=== PATIENT | female | born 1955 | race Caucasian/White ===

== ENCOUNTER → 2020-05-12 | Outpatient (CLI) | payer BC ==
--- NOTE | 2020-05-12 12:59 | XR ---
EXAMINATION TYPE: XR knee complete RT DATE OF EXAM: 05/12/2020 COMPARISON: NONE HISTORY: 64-year-old female right knee pain TECHNIQUE: 3 views FINDINGS: Mild degenerative spurring medial and patellofemoral compartments. Unable to exclude underlying moder ate knee joint effusion. No acute fracture, subluxation, dislocation seen. IMPRESSION: There seems to be an underlying moderate joint effusion. Consider MRI if symptoms persist and concern for internal derangement. No acute osseous abnormality seen.
== END | disposition home or self-care (01) ==
LOC: RADXRMAIN 10:23
PROVIDERS: ATTEND Nurse Practitioner Gerontology
DX: M25.561 Pain in right knee (principal)

== ENCOUNTER 2021-04-20 17:09 | Emergency (ER) | payer BC, MEDICARE ==
[2021-04-20 18:17] VITALS: TEMP 98.4
--- NOTE | 2021-04-20 19:02 | ED ---
URI HPI - General Source: patient Mode of arrival: ambulatory Limitations: no limitations <Stew Sepulveda - Last Filed: 04/20/21 23:18> <Erika Starks - Last Filed: 04/21/21 00:30> - General Chief Complaint: Upper Respiratory Infection Stated Complaint: Covid test, LUIS Time Seen by Provider: 04/20/21 18:50 - History of Present Illness Initial Comments: This is a pleasant 65-year-old female who presents to emergency department stating that she has symptoms or COVID-19 which started 9 days ago. Patient presenting to get a COVID-19 test and received the monoclonal antibody possible. Patient complaining of fever, shortness of breath, dry cough (Stew Sepulveda) - Related Data Allergies Allergy/AdvReac Type Severity Reaction Status Date / Time No Known Allergies Allergy Verified 04/20/21 18:17 Review of Systems ROS Other: All systems not noted in ROS Statement are negative. <DerickStew - Last Filed: 04/20/21 23:18> ROS Other: All systems not noted in ROS Statement are negative. <Erika Starks - Last Filed: 04/21/21 00:30> ROS Statement: Those systems with pertinent positive or pertinent negative responses have been documented in the HPI. Past Medical History Past Medical History: No Reported History History of Any Multi-Drug Resistant Organisms: None Reported Past Surgical History: No Surgical Hx Reported Past Psychological History: No Psychological Hx Reported Smoking Status: Never smoker Past Alcohol Use History: None Reported Past Drug Use History: None Reported <Stew Sepulveda - Last Filed: 04/20/21 23:18> General Exam Limitations: no limitations General appearance: alert, in no apparent distress Head exam: Present: atraumatic, normocephalic, normal inspection Eye exam: Present: normal appearance, PERRL, EOMI. Absent: scleral icterus, conjunctival injection, periorbital swelling ENT exam: Present: normal exam, mucous membranes moist Neck exam: Present: normal inspection. Absent: tenderness, meningismus, lymphadenopathy Respiratory exam: Present: normal lung sounds bilaterally. Absent: respiratory distress, wheezes, rales, rhonchi, stridor Cardiovascular Exam: Present: regular rate, normal rhythm, normal heart sounds. Absent: systolic murmur, diastolic murmur, rubs, gallop, clicks GI/Abdominal exam: Present: soft, normal bowel sounds. Absent: distended, tenderness, guarding, rebound, rigid Extremities exam: Present: normal inspection, full ROM, normal capillary refill. Absent: tenderness, pedal edema, joint swelling, calf tenderness Back exam: Present: normal inspection Neurological exam: Present: alert, oriented X3, CN II-XII intact Psychiatric exam: Present: normal affect, normal mood Skin exam: Present: warm, dry, intact, normal color. Absent: rash <Stew Sepulveda - Last Filed: 04/20/21 23:18> Course Vital Signs 04/20/21 04/20/21 18:14 20:09 Temperature 98.4 F Pulse Rate 92 86 Respiratory 18 20 Rate Blood Pressure 144/92 158/83 O2 Sat by Pulse 95 96 Oximetry Medical Decision Making When compared to previous EKG there are: no significant change <Stew Sepulveda - Last Filed: 04/20/21 23:18> <Erika Starks - Last Filed: 04/21/21 00:30> - Medical Decision Making She presents for symptomology consistent with COVID-19. Patient tested positive meets criteria for monoclonal antibody effusion. No evidence of significant respiratory distress. No evidence of hypoxemia. Follow-up with your regular physician as directed. Return to the ER immediately if any symptoms worsen, new symptoms arise, or any other problems develop. (Stew Sepulveda) I was available for consultation in the emergency department. The history and physical exam were done by the midlevel provider. I was consulted for this patients care. I reviewed the case with the midlevel provider and based on their presentation of the patient, I agree with the assessment, medical decision making and plan of care as documented. (Erika Starks) - Lab Data Lab Results 04/20/21 Range/Units 18:18 Coronavirus (PCR) Detected A (Not Detectd) Disposition Is patient prescribed a controlled substance at d/c from ED?: No <Stew Sepulveda - Last Filed: 04/20/21 23:18> <Erika Starks - Last Filed: 04/21/21 00:30> Clinical Impression: COVID-19 Disposition: HOME SELF-CARE Condition: Stable Instructions (If sedation given, give patient instructions): Coronavirus Disease 2019 (COVID-19) Referrals: Ankit Hoyt MD [Primary Care Provider] - 04/20/21 7:00 pm
--- NOTE | 2021-04-20 19:12 | XR ---
EXAMINATION TYPE: XR chest 2V DATE OF EXAM: 04/20/2021 COMPARISON: NONE HISTORY: Cough TECHNIQUE: Frontal and lateral views of the chest are obtained. FINDINGS: There is no focal air space opacity, pleural effusion, or pneumothorax seen. The cardiac silhouette size is within normal limits. The osseous structures are intact. IMPRESSION: No acute cardiopulmonary process.
[2021-04-20] MEDS ORDERED: CASIRIVIMAB (REGN10933) (EUA) 600 MG, IMDEVIMAB (REGN10987) (EUA) 600 MG in SODIUM CHLO... IVPB ONE (19:15)
[2021-04-20] MEDS ORDERED: SODIUM CHLORIDE 0.9% 50 ML IVPB ONE (19:15)
[2021-04-20 20:10] VITALS: BP 158/83; PULSE 86; RESP 20
== END 2021-04-20 22:04 | disposition home or self-care (01) ==
LOC: EC 17:09
DX: U07.1 COVID-19 (principal)
CPT/HCPCS: 87635; 71046; 99284; Q0244

== ENCOUNTER → 2022-02-01 | Outpatient (CLI) | payer MEDICARE ==
--- NOTE | 2022-02-01 12:48 | XR ---
EXAMINATION TYPE: XR chest 2V DATE OF EXAM: 02/01/2022 COMPARISON: Chest x-ray April 20, 2021 HISTORY: History of COVID with shortness of breath. TECHNIQUE: Frontal and lateral views of the chest are obtained. FINDINGS: There is no suspicious focal air space opacity, pleural effusion, or pneumothorax seen. T he cardiac silhouette size is stable and within normal limits. The osseous structures are intact. IMPRESSION: No acute process. No significant change from prior study.
--- NOTE | 2022-02-01 12:50 | XR ---
EXAMINATION TYPE: XR KUB DATE OF EXAM: 02/01/2022 12:30 PM CLINICAL HISTORY: Kidney stone TECHNIQUE: Two Upright KUB images of the abdomen are obtained. COMPARISON: None. FINDINGS: Scattered gas is seen in non-distended small bowel loops. Gas and fecal material is seen in non-distended colon. There is no visceromegaly, pneumoperitoneum, or abnormal calcification apprecia golden. The lung bases are clear and the osseous structures are intact. IMPRESSION: No definite nephrolithiasis.
== END | disposition home or self-care (01) ==
LOC: RADXRMAIN 12:05
PROVIDERS: ATTEND Nurse Practitioner Family
DX: N20.0 Calculus of kidney (principal); Z86.16 Personal history of COVID-19
CPT/HCPCS: 71046; 74018

== ENCOUNTER 2022-07-31 06:59 | Day surgery (SDC) | payer MEDICARE ==
[~2022-07-31 06:59] MED LIST: LACTATED RINGERS 1,000 ML IV SCH; LIDOCAINE 1% (10MG/ML) FOR IV START INTRADERMA PRN
[2022-07-31 07:34] VITALS: RESP 16; TEMP 97.2
[2022-07-31] MEDS ORDERED: PROPOFOL 10 MG/ML 20 ML VIAL IV ONE (08:19)
--- NOTE | 2022-07-31 08:39 | P.PCN ---
Date of Procedure: 07/31/22 Procedure(s) Performed: BRIEF HISTORY: Patient is a 66-year-old pleasant white female scheduled for an elective colonoscopy as a part of screening for colon cancer and family history of colon cancer. Her brother was diagnosed with colon cancer at age 60. PROCEDURE PERFORMED: Colonoscopy. With snare polypectomy PREOPERATIVE DIAGNOSIS: Screening for colon cancer and family history of colon cancer. IV sedation per Anesthesia. PROCEDURE: After informed consent was obtained, the patient, was brought into the endoscopy unit. IV sedation was administered by Anesthesia under continuous monitoring. Digital rectal examination was normal. Initially the Olympus CF-160 flexible video colonoscope was then inserted in the rectum, gradually advanced into the cecum without any difficulty. Careful examination was performed as the scope was gradually being withdrawn. Ileocecal valve and the appendiceal orifice were visualized and appeared normal. Prep was excellent. Mucosa of the cecum, ascending colon, transverse colon, descending colon, sigmoid colon, and rectum appeared normal. In the mid rectum there were 2 polyps measuring 5 mm and 1.5 cm in size removed by snare polypectomy. Scattered sigmoidal reticulosis seen. Retroflexion was performed in the rectum and no lesions were seen. The patient tolerated the procedure well. IMPRESSION: 5 mm and 1.5 cm mid rectal polyp status post polypectomy. Scattered sigmoid diverticulosis RECOMMENDATIONS: Findings of this examination were discussed with the patient as well as a her family. She was advised to follow with the biopsy results. If the biopsy results adenoma she can have a repeat colonoscopy in 3 years. ].
[2022-07-31 09:20] VITALS: BP 171/77; PULSE 69
== END 2022-07-31 09:35 | disposition home or self-care (01) ==
LOC: ORWHC2ENDO 06:59
PROVIDERS: ATTEND Internal Medicine Gastroenterology
DX: Z12.11 Encounter for screening for malignant neoplasm of colon (principal); D12.8 Benign neoplasm of rectum; K57.30 Diverticulosis of large intestine without perforation or abscess without bleeding; I10 Essential (primary) hypertension; F41.9 Anxiety disorder, unspecified; Z79.899 Other long term (current) drug therapy
CPT/HCPCS: 45385; J2704; 88305

== ENCOUNTER 2023-10-04 10:30 | Day surgery (SDC) | payer MEDICARE ==
[2023-09-30 17:48] VITALS: BMI 28.5
[2023-10-04 10:57] VITALS: TEMP 97.1
[2023-10-04] MEDS: LACTATED RINGERS 1,000 ML IV SCH (10:59)
[2023-10-04] MEDS: IV FLUID CONTINUATION 1,000 ML IV ONE (11:00)
[2023-10-04] MEDS ORDERED: PROPOFOL 10 MG/ML 20 ML VIAL IV ONE (11:53)
--- NOTE | 2023-10-04 12:08 | P.PCN ---
Date of Procedure: 10/04/23 Procedure(s) Performed: BRIEF HISTORY: Patient is a 68-year-old pleasant white female scheduled for an elective colonoscopy as a part of this evaluation of rectal polyp with high- grade dysplasia noted on colonoscopy in July 2022. PROCEDURE PERFORMED: Colonoscopy. PREOPERATIVE DIAGNOSIS: Follow-up rectal polyp with high-grade dysplasia. IV sedation per Anesthesia. PROCEDURE: After informed consent was obtained, the patient, was brought into the endoscopy unit. IV sedation was administered by Anesthesia under continuous monitoring. Digital rectal examination was normal. Initially the Olympus CF-160 flexible video colonoscope was then inserted in the rectum, gradually advanced into the cecum without any difficulty. Careful examination was performed as the scope was gradually being withdrawn. Ileocecal valve and the appendiceal orifice were visualized and appeared normal. Prep was excellent. Mucosa of the cecum, ascending colon, transverse colon, descending colon, sigmoid colon, and rectum appeared normal. Retroflexion was performed in the rectum and grade 2 internal hemorrhoids were seen. The patient tolerated the procedure well. IMPRESSION: Normal-appearing colon from rectum to cecum with no evidence of colorectal neoplasia. Grade 2 internal hemorrhoids. RECOMMENDATIONS: Findings of this examination were discussed with the patient as well as her family. She was advised to have a repeat colonoscopy in 3 years because of history of colon polyps.
[2023-10-04 12:45] VITALS: BP 120/56; PULSE 72; RESP 16
== END 2023-10-04 13:02 | disposition home or self-care (01) ==
LOC: ORWHC2ENDO 10:30
PROVIDERS: ATTEND Internal Medicine Gastroenterology
DX: Z12.11 Encounter for screening for malignant neoplasm of colon (principal); K64.1 Second degree hemorrhoids; Z86.010 Personal history of colon polyps; Z80.0 Family history of malignant neoplasm of digestive organs; I10 Essential (primary) hypertension; E78.5 Hyperlipidemia, unspecified; K21.9 Gastro-esophageal reflux disease without esophagitis; F41.9 Anxiety disorder, unspecified; Z79.899 Other long term (current) drug therapy
CPT/HCPCS: J2704; G0105; 45378